=== PATIENT | female | born 1990 | race Caucasian/White ===

== ENCOUNTER 2025-02-04 11:54 | Outpatient (CLI) | payer BC, SELFPAY ==
--- OUTSIDE RECORDS SUMMARY | 2025-02-08 09:45 | XMS_ITS | Encounter Summary ---
Author Organization [facility] Address [address] [place] [address] Care Team Providers Care Cylinder Block Mechanic Name Role Phone David Emery Primary Care Provider [phone] Svetlana Box MD Primary Care Provider [phone] Yuridia Sofia APRN Unavailable Emma Warner MD Unavailable [phone] Katie Clayton NP Unavailable [phone] Shirin Magallanes NP Unavailable Unavailable Shahid Green MD Unavailable [phone] Delgado Valdez MD Unavailable [phone] Shanna Bronson MD Primary Care Provider Unavailabl e Reason for Visit * Reason Onset Date Comments Results 10/07/2018 Encounter Details Date Type Department Care Team (Late st Contact Info) Description 10/07/2018 Telephone [facility] - Obstetrics & Gynecology, [place] [address] [place] [address] Emma Warner MD [address] [place] [address] Results Social History Tobacco Use Types Packs/Day Years Used Date Smoking Tobacco: Never Smokeless Tobacco: Never Alcohol Use Standard Drinks/Week Comments No 0 (1 standard drink = 0.6 oz pur e alcohol) Comments Yes Sex and Gender Information Value Date Recorded Sex Assigned at Female 05/17/2020 11:05 AM EST Legal Sex Female 7:20 PM EST Gender Identity Female 05/17/2020 11:05 AM EST Sexual Orientation Straight 05/17/2020 11 :05 AM EST documented as of this encounter Miscellaneous Notes * Telephone Encounter - Emma Warner MD - 10/07/2018 4:02 PM EDT Signed * Telephone Encounter - Leonora Prince RMA - 10/07/2018 3:52 PM EDT Pt notified of results. Order pended Sign if okay documented in this encounter Plan of Treatment Not on file documented as of this encounter Visit Diagnoses Not on filedocumented in this encounter Additional Health Concerns Assessment Noted Time PHQ-9 Depression Total Score: 1 05/08/20 17 10:41 AM EST documented as of this encounter Care Teams Cylinder Block Mechanic Relationship Specialty Start Date End Date David Emery PA [address] [place] [address] [place] [address] PCP - General Physician Route Driver Salesperson 03/02/14 12/21/18 Svetlana Box MD [address] [place] [address] [place] [address] PCP - General Family Medicine 12/22/18 08/17/24 Shanna Bronson MD [address] [place] [address] PCP - General Family Medicine 08/18/24 Yuridia Sofia, SENIOR ENVIRONMENTAL ENGINEER [address] [facility] [address] [place], [place] [id number] Nurse Practitioner, Family 06/24/20 Emma Warner MD [address] [facility] [address] [place], [place] [address] Obstetrics & Gynecology 07/04/20 Katie Clayton NP [address] [facility] [address] [place], [place] [address] Nurse Practitioner Family Medicine 12/21/20 Shirin Magallanes NP [address] [facility] [place] [address] Nurse Practitioner Nurse Practitioner 04/20/21 Shahid Green MD 1954 [facility] [address] [place], [place] [address] Otolaryngology 10/31/21 Delgado Valdez MD [address] [place] [address] Orthopedic Surgery 05/20/22 documented as of this encounter
--- OUTSIDE RECORDS SUMMARY | 2025-02-08 09:45 | XMS_ITS | Encounter Summary ---
Author Organization [facility] Address [address] [place] [address] Care Team Providers Care Viticulture Teacher Name Role Phone Svetlana Box MD Primary Care Provider [phone] Yuridia Sofia APRN Unavailable [phone] Emma Warner MD Unavailable [phone] Katie Clayton NP Unavailable [phone] Shirin Magallanes NP Unavailable Unavailable Shahid Green MD Unavailable [phone] Delgado Valdez MD Unavailable [phone] Shanna Bronson MD Primary Care Provider Unavailabl e Reason for Visit * Reason Comments Med Change Request Encounter Details Date Type Department Care Team (Late st Contact Info) Description 10/22/2021 Refill [facility] - Primary Care, [place] [address] [place] [address] Svetlana Box MD [address] [place] [address] [place] [address] Med Change Request Social History Tobacco Use Types Packs/Day Years Used Date Smoking Tobacco: Never Smokeless Tobacco: Never Alcohol Use Standard Drinks/Week Comments Not Currently 0 (1 standard drink = 0.6 oz pur e alcohol) Rare PHQ-2 Answer Date Recorded PHQ-9 Auto Total 0 09/25/2021 [place] Depression Scale Answer Date Recorded [place] Depression Scale Total 1 08/28/2020 The thought of harming myself has occurred to me . Never 08/28/2020 Comments No Sex and Gender Information Value Date Recorded Sex Assigned at Female 05/17/2020 11:05 AM EST Legal Sex Female 7:20 PM EST Gender Identity Female 05/17/2020 11:05 AM EST Sexual Orientation Straight 05/17/2020 11 :05 AM EST COVID-19 Exposure Response Date Recorded In the last 10 days, have yo u been in contact with someone who was confirmed or suspected to have Coronavirus/COVID-19? No / Unsure 10/03/2021 1:16 PM EDT documented as of this encounter Functional Status * Are you blind or do you have difficulty seeing, even when wearing glasses? Answer Date of Assessment Author No 08/27/2020 10:23 AM Matthew Cartagena RN * Do you have serious difficulty walking or climbing stairs? Answer Date of Assessment Author No 08/27/2020 10:23 AM Matthew Cartagena RN * Do you have difficulty dressing or bathing? Answer Date of Assessment Author No 08/27/2020 10:23 AM Matthew Cartagena RN * Because of a physical, mental, or emotional condition, do you have difficulty doing errands alone such as a visiting a doctor's office or shopping? Answer Date of Assessment Author No 08/27/2020 10:23 AM Matthew Cartagena RN documented as of this encounter Mental Status * Because of a physical, mental, or emotional condition, do you have serious difficulty concentrating, remembering, or making decisions? Answer Entry Date Author No 08/27/2020 10:23 AM Matthew Cartagena RN documented in this encounter Plan of Treatment Not on file documented as of this encounter Visit Diagnoses Not on filedocumented in this encounter Additional Health Concerns Assessment Noted Time PHQ-9 Depression Total Score: 1 09/26/19 22 9:09 AM EDT documented as of this encounter Care Teams Viticulture Teacher Relationship Specialty Start Date End Date Svetlana Box MD [address] [place] [address] PCP - General Family Medicine 12/22/18 08/17/24 Shanna Bronson MD [address] [place] [address] PCP - General Family Medicine 08/18/24 Yuridia Sofia, AUTOMATION QTP TESTER [address] [facility] [place] [address] Nurse Practitioner, [facility] 06/24/20 Emma Warner MD [address] [facility] [place] [address] Obstetrics & Gynecology 07/04/20 Katie Clayton NP [address] [facility] [place] [address] Nurse Practitioner Family Medicine 12/21/20 Shirin Magallanes NP [address] [facility] [place] [address] Nurse Practitioner Nurse Practitioner 04/20/21 Shahid Green MD 1954 [facility] [address] [place] [address] Otolaryngology 10/31/21 Delgado Valdez MD [address] [place] [address] Orthopedic Surgery 05/20/22 documented as of this encounter
--- OUTSIDE RECORDS SUMMARY | 2025-02-08 09:45 | XMS_ITS | Encounter Summary ---
Author Organization [facility] Address [address] [place] [address] Care Team Providers Care Advertisement Compositor Name Role Phone Svetlana Box MD Primary Care Provider [phone] Yuridia Sofia APRN Unavailable [phone] Emma Warner MD Unavailable [phone] Katie Clayton NP Unavailable [phone] Shirin Magallanes NP Unavailable Unavailable Shahid Green MD Unavailable [phone] Delgado Valdez MD Unavailable [phone] Shanna Bronson MD Primary Care Provider Unavailabl e Reason for Visit * Reason Comments Medications Refill Encounter Details Date Type Department Care Team (Late st Contact Info) Description 09/13/2021 Refill [facility] Physicians - Obstetrics & Gynecology, [place] [address] [place] [address] Emma Warner MD [address] [place] [address] Medications Refill Social History Tobacco Use Types Packs/Day Years Used Date Smoking Tobacco: Never Smokeless Tobacco: Never Alcohol Use Standard Drinks/Week Comments Not Currently 0 (1 standard drink = 0.6 oz pur e alcohol) Rare PHQ-2 Answer Date Recorded PHQ-9 Auto Total 0 10/23/2019 [place] Depression Scale Answer Date Recorded [place] Depression Scale Total 1 08/28/2020 The thought of harming myself has occurred to me . Never 08/28/2020 Comments No Sex and Gender Information Value Date Recorded Sex Assigned at Female 05/17/2020 11:05 AM EST Legal Sex Female 7:20 PM EST Gender Identity Female 05/17/2020 11:05 AM EST Sexual Orientation Straight 05/17/2020 11 :05 AM EST documented as of this encounter Functional Status [...] Matthew Cartagena RN documented in this encounter Miscellaneous Notes * Telephone Encounter - Brynn Rose - 09/13/2021 8:46 AM EDT Lvm for pt to return call 09/13/2021 * Telephone Encounter - Michael Mckeon LPN - 09/13/2021 8:34 AM EDT Last Annual/ visit: 10/03/2020 Apt scheduled: none Pt due for annual appt documented in this encounter Plan of Treatment Not on file documented as of this encounter Visit Diagnoses Not on filedocumented in this encounter Additional Health Concerns Assessment Noted Time PHQ-9 Depression Total Score: 1 10/23/19 20 11:07 AM EDT documented as of this encounter Care Teams Advertisement Compositor Relationship Specialty Start Date End Date Svetlana Box MD [address] [facility] [place] [address] PCP - General Family Medicine 12/22/18 08/17/24 Shanna Bronson MD [address] [place] [address] PCP - General Family Medicine 08/18/24 Yuridia Sofia, APPLIANCE MECHANIC [address] [facility] [place] [address] Nurse Practitioner, Family 06/24/20 Emma Warner MD [address] [place] [address] [place] [address] Obstetrics & Gynecology 07/04/20 Katie Clayton NP [address] [place] [address] [place] [address] Nurse Practitioner Family Medicine 12/21/20 Shirin Magallanes NP [address] [place] [address] [place] [id number] Nurse Practitioner Nurse Practitioner 04/20/21 Shahid Green MD [address] [facility]. [address] [place] [address] Otolaryngology 10/31/21 Delgado Valdez MD [address] [place] [address] Orthopedic Surgery 05/20/22 documented as of this encounter
--- OUTSIDE RECORDS SUMMARY | 2025-02-08 09:45 | XMS_ITS | Encounter Summary ---
Author Organization [facility] Address [address] [place] [address] Care Team Providers Care Plating Engineer Name Role Phone Svetlana Box MD Primary Care Provider [phone] Yuridia Sofia APRN Unavailable [phone] Emma Warner MD Unavailable [phone] Katie Clayton NP Unavailable [phone] Shirin Magallanes NP Unavailable Unavailable Shahid Green MD Unavailable [phone] Delgado Valdez MD Unavailable [phone] Shanna Bronson MD Primary Care Provider Unavailabl e Reason for Visit * Reason Comments Medications Refill Encounter Details Date Type Department Care Team (Late st Contact Info) Description 03/21/2021 Refill [facility] - Obstetrics & Gynecology, [place] [address] [place] [address] Emma Warner MD [address] [place] [address] Medications Refill Social History Tobacco Use Types Packs/Day Years Used Date Smoking Tobacco: Never Smokeless Tobacco: Never Alcohol Use Standard Drinks/Week Comments Not Currently 0 (1 standard drink = 0.6 oz pur e alcohol) Rare PHQ-2 Answer Date Recorded PHQ-9 Auto Total 0 10/23/2019 [place] Depression Scale Answer Date Recorded [place] Depression Scale Total 1 08/28/2020 The thought [...] documented as of this encounter Care Teams Plating Engineer Relationship Specialty Start Date End Date Svetlana Box MD [address] [facility] [place] [address] PCP - General Family Medicine 12/22/18 08/17/24 Shanna Bronson MD [address] [place] [address] PCP - General Family Medicine 08/18/24 Yuridia Sofia APRN [address] [place] [address] [place], [place] [address] Nurse Practitioner, [facility] 06/24/20 Emma Warner MD [address] [place] [address] [place] [address] Obstetrics & Gynecology 07/04/20 Katie Clayton NP [address] [place] [address] [place], [place] [address] Nurse Practitioner Family Medicine 12/21/20 Shirin Magallanes NP [address] [place] [address] [place] [address] Nurse Practitioner Nurse Practitioner 04/20/21 Shahid Green MD [address] [place] [address] [address] [place] [address] Otolaryngology 10/31/21 Delgado Valdez MD [address] [place] [address] Orthopedic Surgery 05/20/22 documented as of this encounter
--- OUTSIDE RECORDS SUMMARY | 2025-02-08 09:45 | XMS_ITS | Encounter Summary ---
Author Organization [facility] Address [address] [place] [address] Care Team Providers Care Hides Inspector Name Role Phone Svetlana Box MD Primary Care Provider [phone] Yuridia Sofia APRN Unavailable [phone] Emma Warner MD Unavailable [phone] Katie Clayton NP Unavailable [phone] Shirin Magallanes NP Unavailable Unavailable Shahid Green MD Unavailable [phone] Delgado Valdez MD Unavailable [phone] Shanna Bronson MD Primary Care Provider Unavailabl e Encounter Details Date Type Department Care Team (Late st Contact Info) Description 04/24/2022 E-Visit [facility] Information Desk [address] [place] [address] Mychart, Generic Provider Social History Tobacco Use Types Packs/Day Years Used Date Smoking Tobacco: Never Smokeless Tobacco: Never Alcohol Use Standard Drinks/Week Comments Not Currently 0 (1 standard drink = 0.6 oz pur e alcohol) Rare PHQ-2 Answer Date Recorded PHQ-9 Auto Total 0 09/25/2021 [place] Depression Scale Answer Date Recorded [place] Depression Scale Total 1 08/28/2020 The thought [...] documented as of this encounter Care Teams Hides Inspector Relationship Specialty Start Date End Date Svetlana Box MD [address] [facility] [place] [address] PCP - General Family Medicine 12/22/18 08/17/24 Shanna Bronson MD [address] [place] [address] PCP - General Family Medicine 08/18/24 Yuridia Sofia APRN 1954 [facility] [address] [place], [place] [address] Nurse Practitioner, Family 06/24/20 Emma Warner MD 1954 [facility] [address] [place], [place] [id number] Obstetrics & Gynecology 07/04/20 Katie Clayton NP 1954 [facility] [address] [place], [place] [address] Nurse Practitioner Family Medicine 12/21/20 Shirin Magallanes NP [address] [place] [address] Nurse Practitioner Nurse Practitioner 04/20/21 Shahid Green MD 1954 [facility] [address] [place] [address] Otolaryngology 10/31/21 Delgado Valdez MD [address] [place] [address] Orthopedic Surgery 05/20/22 documented as of this encounter
--- OUTSIDE RECORDS SUMMARY | 2025-02-08 09:46 | XMS_ITS | Encounter Summary ---
Author Organization [facility] Address [address] [place] [address] Care Team Providers Care Car Storer Name Role Phone Yuridia Sofia CLIENT ASSOCIATE Unavailable [phone] Emma Warner MD Unavailable [phone] Katie Clayton NP Unavailable [phone] Shirin Magallanes NP Unavailable Unavailable Shahid Green MD Unavailable [phone] Delgado Valdez MD Unavailable [phone] Shanna Bronson MD Primary Care Provider Unavailabl e Reason for Visit * Reason Onset Date Comments Other 10/22/2024 Pt requests US Encounter Details Date Type Department Care Team (Late st Contact Info) Description 10/22/2024 Telephone [facility] Physicians - Obstetrics & Gynecology, [place] [address] [place] [address] Yuridia Sofia, CLIENT ASSOCIATE [address] [place] [address] Other (Pt requests US ) Social History Tobacco Use Types Packs/Day Years Used Date Smoking Tobacco: Never Smokeless Tobacco: Never Alcohol Use Standard Drinks/Week Comments Not Currently 0 (1 standard drink = 0.6 oz pur e alcohol) Rare PHQ-2 Answer Date Recorded PHQ-9 Auto Total 10 08/18/2024 [place] Depression Scale Answer Date Recorded [place] Depression Scale Total 1 08/28/2020 The thought [...] encounter Miscellaneous Notes * Telephone Encounter - Romi Larios - 10/23/2024 12:29 PM EDT LVM to get sched for US * Telephone Encounter - Romi Larios - 10/22/2024 12:34 PM EDT Pt wants an approval for an US because she is still having pain in her abdomen right ovary Let me know if I can sched documented in this encounter Plan of Treatment Not on file documented as of this encounter Visit Diagnoses Not on filedocumented in this encounter Additional Health Concerns Assessment Noted Time PHQ-9 Depression Total Score: 1 04/01/20 11:34 AM EST documented as of this encounter Care Teams Car Storer Relationship Specialty Start Date End Date Shanna Bronson MD [address] [place] [address] PCP - General Family Medicine 08/18/24 Yuridia Sofia, CLIENT ASSOCIATE 1954 [facility] [place] [address] Nurse Practitioner, [facility] 06/24/20 Emma Warner MD 1954 [facility] [place] [address] Obstetrics & Gynecology 07/04/20 Katie Clayton NP 1954 [facility] [place] [address] Nurse Practitioner Family Medicine 12/21/20 Shirin Magallanes NP [address] [place] [address] [place] [address] Nurse Practitioner Nurse Practitioner 04/20/21 Shahid Green MD 1954 [facility] [place] [address] Otolaryngology 10/31/21 Delgado Valdez MD [address] [place] [address] Orthopedic Surgery 05/20/22 documented as of this encounter
--- OUTSIDE RECORDS SUMMARY | 2025-02-08 09:46 | XMS_ITS | Clinical Summary ---
Author Organization [facility] Address [address] [place] [address] Care Team Providers Care Roofer Vinyl Coating Name Role Phone Yuridia Sofia APRN Unavailable [phone] Emma Warner MD Unavailable [phone] Katie Clayton NP Unavailable [phone] Shirin Magallanes NP Unavailable Unavailable Shahid Green MD Unavailable [phone] Delgado Valdez MD Unavailable [phone] Shanna Bronson MD Primary Care Provider Unavailabl e Allergies Active Allergy Reactions Criticality Noted Date Comments Amoxicillin Hives 11/22/2011 Latex Anaphylaxis,Shortness Of Breath High 09/10 Penicillins Hives 03/03/2014 Medications EPINEPHrine (EPIPEN) 0.3 mg/0.3 mL Auto-Injector epi-pen INJECT SYRINGE DIRECTED FOR ALLERGIC REACTION 2 9 Active multivitamin (THERAGRAN) Tablet Take 1 Tablet by mouth daily. Active melatonin 1 mg Tablet, Chewable Take by mouth. Activ e loratadine (Claritin) 10 mg tablet Take 10 mg by mouth daily. Active mupirocin (BACTROBAN) 2 % ointment Apply to affected area twice a day until clear. 22 g 4 Active fexofenadine (Ana Allergy) 180 mg tablet Take 180 mg by mouth daily. 4 Active albuterol (VENTOLIN/PROAI R/PROVENTIL HFA) 90 mcg/actuation HFA Aerosol Inhaler Take 2 Puffs by inhalation every 4 hours as needed for Wheezing. 1 Each 11 4 Active aspirin 81 mg Tablet, Delayed Release (E.C.) Take 81 mg by mouth daily. Active Levocetirizine (Xyzal) 5 mg Tablet 5 Active clindamycin (CLEOCIN) 300 mg capsuleIndicati ons:MRSA infection,Recur rent cellulitis Take 1 Capsule (300 mg) by mouth every 8 hours. 30 Capsule 1 5 Active Active Problems Problem Noted Date Diagnosed Date Vitamin D deficiency 09/26/2021 Assessment & Plan (08/30/2024 6:37 PM EDT): Orders: VITAMIN D 25 HYDROXY TOTAL; Future Lesion of skin of cheek 03/20/2016 Latex allergy 03/19/2016 Iron deficiency anemia, unsp ecified iron deficiency anemia type 03/19/2016 Assessment & Plan (08/30/2024 6:37 PM EDT): Orders: CBC WITH DIFFERENTIAL; Future IRON STUDIES (FE + TIBC + SAT); Future Resolved Problems Problem Noted Date Diagnosed Date Resolved Date 40 weeks gestation of 08/27/2020 09/25/2021 11/30/2018 09/25/2021 Pyelonephritis-bilateral 04/17/2016 Localized superficial swelling, mass, or lump 11/28/19 12 03/03/2014 Immunizations Immunization Administration Dates Next Due DTaP 01/29/1996,11/25/1991,04/03/1991 ,1990,1990 Hepatitis B 02/09/2002,11/07/2001,06/11/2001 HiB 08/29/1991,04/03/1991,1990 ,1990 IPV 01/29/1996,11/25/1991,1990 ,1990 Influenza (whole) 03/18/2016,03/27/2015,02/09/20 15 MMR 06/09/2001,01/29/1996,08/29/1991 Tdap 07/04/2020,10/09/2018,12/19/2005 Family History Medical History Relation Name Comments High Cholesterol Father Alcohol Abuse Maternal Grandfather Prostate Cancer Maternal Grandfather Osteoarthritis Maternal Grandmother Anemia Mother High Blood Pressure Mother High Cholesterol Mother Thyroid Disease Mother Osteoarthritis Paternal Grandmother Osteoporosis Paternal Grandmother Migraines Sister Relation Name Status Comments Father Maternal Grandfather Maternal Grandmother Mother Paternal Grandmother Sister Social History Tobacco Use Types Packs/Day Years Used Date Smoking Tobacco: Never Smokeless Tobacco: Never Tobacco Cessation:Counseling Given: Not Answered Alcohol Use Standard Drinks/Week Comments Not Currently 0 (1 standard drink = 0.6 oz pur e alcohol) Rare PHQ-2 Answer Date Recorded PHQ-9 Auto Total 10 08/18/2024 [place] Depression Scale Answer Date Recorded [place] Depression Scale Total 1 08/28/2020 The thought of harming myself has occurred to me . Never 08/28/2020 Comments No Sex and Gender Information Value Date Recorded Sex Assigned at Female 05/17/2020 11:05 AM EST Legal Sex Female 7:20 PM EST Gender Identity Female 05/17/2020 11:05 AM EST Sexual Orientation Straight 05/17/2020 11 :05 AM EST Last Filed Vital Signs Vital Sign Reading Time Taken Comments Blood Pressure 102/64 08/18/2024 3:58 PM EDT Pulse 95 08/18/2024 4:03 PM EDT Temperature 36.2 C (97.2 F) 08/18/2024 3:58 PM EDT Respiratory Rate 18 12/21/2020 1:34 PM EDT Oxygen Saturation 99% 08/18/2024 3:58 PM EDT Inhaled Oxygen Concentration - - Weight 61.4 kg (135 lb 6.4 oz) 08/18/2024 3:58 P M EDT Height 157.5 cm (5' 2 ) 08/18/2024 3:58 PM EDT Body Mass Index 24.76 08/18/2024 3:58 PM EDT Plan of Treatment Health Maintenance Due Date Last Done Comments HPV Vaccine (1 - 3-dose SCDM series) 2017 COVID-19 Vaccine (2023-2 5 season) 2025 Influenza Vaccination (#1) 01/11/202503/18, 03/27/2015, 02/08/2015 Cervical Cancer Screening 08/08/20272024, 11/30/2021, 02/22/2020, Additional history exists Tetanus Vaccination (Every 1 0 Years) 07/04/2030 07/04/2020, 10/09/2018, 12/19/2005, Additional history exists Influenza Vaccination (Yearly) Discontinued 1 07/09/2016 (Patient/Parent/Guardian Counseled and Declines), 03/19/2016, 03/18/2016, Additional history exists Depression Screening Completed 08/18/2024, 05/21/2023, 04/01/2023, Additional history exists Lipid Screening Completed 08/31/2024, 09/25/2021 Procedures Procedure Name Priority Date/Time Associated Diagnosis Comments LIPID PROFILE Routine 08/31/2024 11:41 AM EDT Routine general medical examination at a health care facility PAP HPV DNA, JUNE Routine 08/07/2024 4:4 0 PM EDT Gynecologic exam normal from Last 3 Months or Most Recently Relevant to Health Maintenance Results * (ABNORMAL) LIPID PROFILE (08/31/2024 11:41 AM EDT) Cholesterol 179 125 - 199 mg/dL [facility] Comment: TOTAL CHOLESTEROL INTERPRETATION: Less than 200 mg/dL Desireable 200-239 mg/dL Borderline Greater or Equal to 240 mg/dL High LDL Calculated 113(H) 0 - 100 mg/dL [facility] Comment: LDL CHOLESTEROL INTERPRETATION: Less than 100 mg/dL Optimal 100-129 mg/dL Near optimal/above optimal 130-159 mg/dL Borderline High 160-189 mg/dL High Greater or Equal to 190 mg/dL Very High HDL 54 40 - 180 mg/dL [facility] Comment: HDL CHOLESTEROL INTERPRETATION: Less than 40 mg/dL Low Greater than 60 mg/dL Desirable Triglycerides 58 0 - 149 mg/dL [facility] Comment: TOTAL TRIGLYCERIDE INTERPRETATION: Less than 150 mg/dL Normal 150-199 mg/dL Borderline HIgh 200-499 mg/dL High Greater or Equal to 500 mg/dL Very High NONHDL Calculated 125 0 - 129 mg/dL [facility] Comment: NON-HDL INTERPRETATION: Less than 130 mg/dL Desirable 130-159 mg/dL Above Desirable 160-189 mg/dL Borderline High 190-219 mg/dL High Greater than or equal to 220 mg/dL Very High Serum 08/31/2024 11:4 1 AM EDT 08/31/2024 6:07 PM EDT Narrative [facility] - 08/31/2024 6:53 PM EDT Has the patient fasted?->Yes us Shanna Bronson MD CHEMISTRY ORDERABLES Final Resul t [facility] [address] [id number], [facility] * PAP HPV DNA, JUNE (08/07/2024 4:40 PM EDT) Diagnosis Comment [facility] Comment:NEGATIVE FOR INTRAEP ITHELIAL LESION OR MALIGNANCY. Adequacy Comment [facility] Comment: Satisfactory for evaluation. Endocervical and/or squamous metaplastic cells (endocervical component) are present. Performed Comment [facility] Comment:Marisol Crurie, Cytote chnologist (ASCP) Notes Comment [facility] Comment: The Pap smear is a screening test designed to aid in the detection of premalignant and malignant conditions of the uterine cervix. It is not a diagnostic procedure and should not be used as the sole means of detecting cervical cancer. Both false-positive and false-negative reports do occur. HPV 16 Hilaria Negative Negative [facility] HPV 18, Hilaria Negative Negative [facility] Comment: This nucleic acid amplification test detects fourteen high-risk HPV types: HPV16, HPV18 and twelve other high-risk types (31,33,35,39,45,51,52,56,58,59,66,68) without differentiation. Performed at: [address] [id number] Rn Testing: Madhavi Clement MD, Phone: [phone] Performed at: [address] [id number] Rn Testing: Madhavi Clement MD, Phone: [phone] HPV Other Types, Hilaria Negative Negative [facility] Pap Vial 08/07/2024 4:40 PM EDT 08/11/2024 1:07 PM EDT Yuridia Sofia B OPERATOR PATHOLOGY/CYTOLOGY ORDERABL ES Final Result [facility] [address] [place] [address], [facility] from Last 3 Months or Most Recently Relevant to Health Maintenance Insurance [employer] Advance Directives For more information, please contact: [phone] * Full Code (Latest Code Status on File) Date Activated Date Inactivated Comments 08/27/2020 8:24 PM No automated c hest compression devices for VAD Patients * Full Code Date Activated Date Inactivated Comments 08/27/2020 8:56 AM 08/27/2020 8:24 PM No automated chest compression devices for VAD Patients * Full Code Date Activated Date Inactivated Comments 12/04/2018 5:00 AM 08/27/2020 8:05 AM No automated chest compression devices for VAD Patients * Full Code Date Activated Date Inactivated Comments 12/03/2018 8:15 PM 12/04/2018 5:00 AM No automated chest compression devices for VAD Patients * Full Code Date Activated Date Inactivated Comments 12/01/2018 10:37 AM 12/03/2018 8:14 PM No automate d chest compression devices for VAD Patients Care Teams Roofer Vinyl Coating Relationship Specialty Start Date End Date Shanna Bronson MD [address] [place] [address] PCP - General Family Medicine 08/18/24 Yuridia Sofia, B OPERATOR [address] [place] [address] Nurse Practitioner, Family 06/24/20 Emma Warner MD [address] [place] [address] [place] [address] Obstetrics & Gynecology 07/04/20 Katie Clyaton NP [address] [place] [address] [place] [address] Nurse Practitioner Family Medicine 12/21/20 Shirin Magallanes NP [address] [place] [address] [place] [address] Nurse Practitioner Nurse Practitioner 04/20/21 Shahid Green MD 1954 [facility] [address] [place] [address] Otolaryngology 10/31/21 Delgado Valdez MD [address] [place] [address] Orthopedic Surgery 05/20/22
--- OUTSIDE RECORDS SUMMARY | 2025-02-08 09:46 | XMS_ITS | Encounter Summary ---
Author Organization [facility] Address [address] [place] [address] Care Team Providers Care Factory Supervisor Name Role Phone David Emery Primary Care Provider [phone] Svetlana Box MD Primary Care Provider [phone] Yuridia Sofia APRN Unavailable Emma Warner MD Unavailable [phone] Katie Clayton NP Unavailable [phone] Shirin Magallanes NP Unavailable Unavailable Shahid Green MD Unavailable [phone] Delgado Valdez MD Unavailable [phone] Shanna Bronson MD Primary Care Provider Unavailabl e Reason for Visit * Reason Comments Medications Refill Encounter Details Date Type Department Care Team (Late st Contact Info) Description 01/31/2018 Refill [facility] - Obstetrics & Gynecology, [place] [address] [place] [address] Yuridia Sofia, LAYTON [address] [place] [address] Medications Refill Social History Tobacco Use Types Packs/Day Years Used Date Smoking Tobacco: Never Smokeless Tobacco: Never Alcohol Use Standard Drinks/Week Comments No 0 (1 standard drink = 0.6 oz pur e alcohol) Comments No Sex and Gender Information Value Date Recorded Sex Assigned at Female 05/17/2020 11:05 AM EST Legal Sex Female 7:20 PM EST Gender Identity Female 05/17/2020 11:05 AM EST Sexual Orientation Straight 05/17/2020 11 :05 AM EST documented as of this encounter Miscellaneous Notes * Telephone Encounter - Elizabeth Tijerina CCMA - 01/31/2018 3:22 PM EDT Called pt and she already picked up her Zofran rx a couple days ago. Must have got this refill in error. documented in this encounter Plan of Treatment Not on file documented as of this encounter Visit Diagnoses Not on filedocumented in this encounter Additional Health Concerns Assessment Noted Time PHQ-9 Depression Total Score: 1 05/08/20 17 10:41 AM EST documented as of this encounter Care Teams Factory Supervisor Relationship Specialty Start Date End Date David Emery PA [address] [facility] [place] [address] PCP - General Physician Renewable Energy Project Manager 03/02/14 12/21/18 Svetlana Box MD [address] [facility] [place] [address] PCP - General Family Medicine 12/22/18 08/17/24 Shanna Bronson MD [address] [place] [address] PCP - General Family Medicine 08/18/24 Yuridia Sofia APRN [address] [facility] [place] [address] Nurse Practitioner, Family 06/24/20 Emma Warner MD [address] [facility] [place] [address] Obstetrics & Gynecology 07/04/20 Katie Clayton NP [address] [facility] [address] [place], [place] [id number] Nurse Practitioner Family Medicine 12/21/20 Shirin Magallanes NP [address] [facility] [place] [address] Nurse Practitioner Nurse Practitioner 04/20/21 Shahid Green MD 1954 [facility]. [facility] [address] [place] [address] Otolaryngology 10/31/21 Delgado Valdez MD [address] [place] [address] Orthopedic Surgery 05/20/22 documented as of this encounter
--- OUTSIDE RECORDS SUMMARY | 2025-02-08 09:46 | XMS_ITS | Encounter Summary ---
Author Organization [facility] Address [address] [place] [address] Care Team Providers Care Solar Sales Representative Name Role Phone Svetlana Box MD Primary Care Provider [phone] Yuridia Sofia APRN Unavailable [phone] Emma Warner MD Unavailable [phone] Katie Clayton NP Unavailable [phone] Shirin Magallanes NP Unavailable Unavailable Shahid Green MD Unavailable [phone] Delgado Valdez MD Unavailable [phone] Shanna Bronson MD Primary Care Provider Unavailabl e Encounter Details Date Type Department Care Team (Late st Contact Info) Description 10/23/2019 E-Visit [facility] Physicians - Primary Care, Dotty Chen [address] [place] [address] [place] [address] Svetlana Box MD [address] [facility] [place] [address] E-Visit Submission: OTHER Social History Tobacco Use Types Packs/Day Years Used Date Smoking Tobacco: Never Smokeless Tobacco: Never Alcohol Use Standard Drinks/Week Comments No 0 (1 standard drink = 0.6 oz pur e alcohol) PHQ-2 Answer Date Recorded PHQ-9 Auto Total 0 10/23/2019 Comments No Sex and Gender Information Value Date Recorded Sex Assigned at Female 05/17/2020 11:05 AM EST Legal Sex Female 7:20 PM EST Gender Identity Female 05/17/2020 11:05 AM EST Sexual Orientation Straight 05/17/2020 11 :05 AM EST COVID-19 Exposure Response Date Recorded In the last month, have you been in contact with someone who was confirmed or suspected to have Coronavirus / COVID-19? No / Unsure 10/23/2019 8:41 AM EDT documented as of this encounter Functional Status * Are you blind or do you have difficulty seeing, even when wearing glasses? Answer Date of Assessment Author No 11/30/2018 9:06 PM EDT Nicole Michael RN * Do you have serious difficulty walking or climbing stairs? Answer Date of Assessment Author No 11/30/2018 9:06 PM EDT Nicole Michael RN * Do you have difficulty dressing or bathing? Answer Date of Assessment Author No 11/30/2018 9:06 PM EDT Nicole Michael RN * Because of a physical, mental, or emotional condition, do you have difficulty doing errands alone such as a visiting a doctor's office or shopping? Answer Date of Assessment Author No 11/30/2018 9:06 PM EDT Nicole Michael RN documented as of this encounter Mental Status * Because of a physical, mental, or emotional condition, do you have serious difficulty concentrating, remembering, or making decisions? Answer Entry Date Author No 11/30/2018 9:06 PM EDT Nicole Michael RN documented in this encounter Plan of Treatment Not on file documented as of this encounter Visit Diagnoses Not on filedocumented in this encounter Additional Health Concerns Assessment Noted Time PHQ-9 Depression Total Score: 1 10/23/19 20 11:07 AM EDT documented as of this encounter Care Teams Solar Sales Representative Relationship Specialty Start Date End Date Svetlana Box MD [address] [facility] [place] [address] PCP - General Family Medicine 12/22/18 08/17/24 Shanna Bronson MD [address] [place] [address] PCP - General Family Medicine 08/18/24 Yuridia Sofia APRN [address] [facility] [address] [place], [place] [address] Nurse Practitioner, [facility] 06/24/20 Emma Warner MD [address] [facility] [place] [address] Obstetrics & Gynecology 07/04/20 Katie Clayton NP [address] [facility] [address] [place], [place] [id number] Nurse Practitioner Family Medicine 12/21/20 Shirin Magallanes NP [address] [place] [address] Nurse Practitioner Nurse Practitioner 04/20/21 Shahid Green MD 1954 [facility] [place] [address] Otolaryngology 10/31/21 Delgado Valdez MD [address] [place] [address] Orthopedic Surgery 05/20/22 documented as of this encounter
--- OUTSIDE RECORDS SUMMARY | 2025-02-08 09:46 | XMS_ITS | Encounter Summary ---
Author Organization [facility] Address [address] [place] [address] Care Team Providers Care Nurse Discharge Name Role Phone Svetlnaa Box MD Primary Care Provider [phone] Yuridia Sofia APRN Unavailable [phone] Emma Warner MD Unavailable [phone] Katie Clayton NP Unavailable [phone] Shirin Magallanes NP Unavailable Unavailable Shahid Green MD Unavailable [phone] Delgado Valdez MD Unavailable [phone] Shanna Bronson MD Primary Care Provider Unavailabl e Encounter Details Date Type Department Care Team (Late st Contact Info) Description 10/19/2022 E-Visit [facility] Information Desk [address] [place] [address] Mychart, Generic Provider Social History Tobacco Use Types Packs/Day Years Used Date Smoking Tobacco: Never Smokeless Tobacco: Never Alcohol Use Standard Drinks/Week Comments Not Currently 0 (1 standard drink = 0.6 oz pur e alcohol) Rare PHQ-2 Answer Date Recorded PHQ-9 Auto Total 0 09/25/2021 [place] Depression Scale Answer Date Recorded [place] Depression Scale Total 1 08/28/2020 The thought [...] documented as of this encounter Care Teams Nurse Discharge Relationship Specialty Start Date End Date Svetlana Box MD [address] [place] [address] PCP - General Family Medicine 12/22/18 08/17/24 Shanna Bronson MD [address] [place] [address] PCP - General Family Medicine 08/18/24 Yuridia Sofia APRN 1954 [facility] [address] [place], [place] [address] Nurse Practitioner, Family 06/24/20 Emma Warner MD 1954 [facility] [address] [place], [place] [id number] Obstetrics & Gynecology 07/04/20 Katie Clayton NP [address] [facility] [address] [place], [place] [id number] Nurse Practitioner Family Medicine 12/21/20 Shirin Magallanes NP 1954 [facility] [place] [address] Nurse Practitioner Nurse Practitioner 04/20/21 Shahid Green MD 1954 [facility] [place] [facility] [address] [place] [address] Otolaryngology 10/31/21 Delgado Valdez MD [address] [place] [address] Orthopedic Surgery 05/20/22 documented as of this encounter
--- OUTSIDE RECORDS SUMMARY | 2025-02-08 09:46 | XMS_ITS | Encounter Summary ---
Author Organization [facility] Address [address] [place] [address] Care Team Providers Care Job Order Clerk Name Role Phone Svetlana Box MD Primary Care Provider [phone] Yuridia Sofia APRN Unavailable [phone] Emma Warner MD Unavailable [phone] Katie Clayton NP Unavailable [phone] Shirin Magallanes NP Unavailable Unavailable Shahid Green MD Unavailable [phone] Delgado Valdez MD Unavailable [phone] Shanna Bronson MD Primary Care Provider Unavailabl e Encounter Details Date Type Department Care Team (Late st Contact Info) Description 11/21/2022 E-Visit [facility] Information Desk [address] [place] [address] Mychart, Generic Provider Social History Tobacco Use Types Packs/Day Years Used Date Smoking Tobacco: Never Smokeless Tobacco: Never Alcohol Use Standard Drinks/Week Comments Not Currently 0 (1 standard drink = 0.6 oz pur e alcohol) Rare PHQ-2 Answer Date Recorded PHQ-9 Auto Total 0 09/25/2021 [place] Depression Scale Answer Date Recorded [place] Depression Scale Total 1 08/28/2020 The thought [...] suspected to have Coronavirus/COVID-19? No / Unsure 11/21/2022 2:20 PM EDT documented as of this encounter [...] documented as of this encounter Care Teams Job Order Clerk Relationship Specialty Start Date End Date Svetlana Box MD [address] [facility] [place] [address] PCP - General Family Medicine 12/22/18 08/17/24 Shanna Bronson MD [address] [place] [address] PCP - General Family Medicine 08/18/24 Yuridia Sofia APRN [address] [place] [address] [place] [address] Nurse Practitioner, [facility] 06/24/20 Emma Warner MD [address] [place] [address] [place] [address] Obstetrics & Gynecology 07/04/20 Katie Clayton NP [address] [place] [address] [place] [address] Nurse Practitioner Family Medicine 12/21/20 Shirin Magallanes NP [address] [place] [address] [place] [address] Nurse Practitioner Nurse Practitioner 04/20/21 Shahid Green MD [facility]. [facility] [address] [place] [address] Otolaryngology 10/31/21 Delgado Valdez MD [address] [place] [address] Orthopedic Surgery 05/20/22 documented as of this encounter
--- OUTSIDE RECORDS SUMMARY | 2025-02-08 09:46 | XMS_ITS | Encounter Summary ---
Author Organization [facility] (Formerly [facility])[3] Address [address] [place] [address] Care Team Providers Care Kiln Tester Name Role Phone Svetlana Box MD Primary Care Provider [phone] Yuridia Sofia APRN Unavailable [phone] Emma Warner MD Unavailable [phone] Katie Clayton NP Unavailable [phone] Shirin Magallanes NP Unavailable Unavailable Shahid Green MD Unavailable [phone] Delgado Valdez MD Unavailable [phone] Shanna Bronson MD Primary Care Provider Unavailabl e Reason for Visit * Reason Comments Medications Refill Encounter Details Date Type Department Care Team (Late st Contact Info) Description 09/21/2019 Refill [facility] ([facility]3] Physicians - Obstetrics & Gynecology, [place] [address] [place] [address] Yuridia Sofia, CHILD CARE GROUP LEADER [address] [place] [address] Medications Refill Social History Tobacco [...] Nicole Michael RN documented in this encounter Miscellaneous Notes * Telephone Encounter - Francie Farah - 09/23/2019 10:19 AM EDT Pt called back stating she did not request this refill. * Telephone Encounter - Elizabeth Tijerina CCMA - 09/23/2019 9:04 AM EDT LM for pt to call back to let us know if she requested this rx or not. * Telephone Encounter - Elizabeth Tijerina CCMA - 09/22/2019 4:20 PM EDT Last annual 06/12/2018. documented in this encounter Plan of Treatment Not on file documented as of this encounter Visit Diagnoses Not on filedocumented in this encounter Additional Health Concerns Assessment Noted Time PHQ-9 Depression Total Score: 1 05/08/20 17 10:41 AM EST documented as of this encounter Care Teams Kiln Tester Relationship Specialty Start Date End Date Svetlana Box MD [address] [facility] [place] [address] [place] [address] PCP - General Family Medicine 12/22/18 08/17/24 Shanna Bronson MD [address] [place] [address] PCP - General Family Medicine 08/18/24 Yuridia Sofia, CHILD CARE GROUP LEADER [address] [facility] [place] [address] Nurse Practitioner, Family 06/24/20 Emma Warner MD [address] [facility] [place] [place] [address] Obstetrics & Gynecology 07/04/20 Katie Clayton NP [address] [place] [address] [place] [address] Nurse Practitioner Family Medicine 12/21/20 Shirin Magallanes NP [address] [facility] [place] [address] Nurse Practitioner Nurse Practitioner 04/20/21 Shahid Green MD [address] [facility] [place] [address] Otolaryngology 10/31/21 Delgado Valdez MD [address] [place] [address] Orthopedic Surgery 05/20/22 documented as of this encounter
--- OUTSIDE RECORDS SUMMARY | 2025-02-08 09:46 | XMS_ITS | Encounter Summary ---
Author Organization [facility] Address [address] [place] [address] Care Team Providers Care It Security Analyst Name Role Phone Svetlana Box MD Primary Care Provider [phone] Yuridia Sofia APRN Unavailable [phone] Emma Warner MD Unavailable [phone] Katie Clayton NP Unavailable [phone] Shirin Magallanes NP Unavailable Unavailable Shahid rGeen MD Unavailable [phone] Delgado Valdez MD Unavailable [phone] Shanna Bronson MD Primary Care Provider Unavailabl e Encounter Details Date Type Department Care Team (Late st Contact Info) Description 10/23/2019 E-Visit [facility] Information Desk [address] [place] [address] [id number] Mychart, Generic Provider Social History Tobacco Use [...] documented as of this encounter Care Teams It Security Analyst Relationship Specialty Start Date End Date Svetlana Box MD [address] [place] [address] PCP - General Family Medicine 12/22/18 08/17/24 Shanna Bronson MD [address] [place] [address] PCP - General Family Medicine 08/18/24 Yuridia Sofia, NATURALIST [address] [facility] [address] [facility] [place] [id number] Nurse Practitioner, [facility] 06/24/20 Emma Warner MD [address] [facility] [address] [place], [place] [id number] Obstetrics & Gynecology 07/04/20 Katie Clayton NP [address] [facility] [address] [place], [place] [id number] Nurse Practitioner Family Medicine 12/21/20 Shirin Magallanes NP [address] [facility] [place] [address] Nurse Practitioner Nurse Practitioner 04/20/21 Shahid Green MD [address] [facility] [address] [place] [address] Otolaryngology 10/31/21 Delgado Valdez MD [address] [place] [address] Orthopedic Surgery 05/20/22 documented as of this encounter
== END 2025-02-04 23:59 ==
LOC: LAB.DROPOF 02-08 09:44
PROVIDERS: PCP Nurse Practitioner Family; Visit Provider Nurse Practitioner Family
DX: R31.9 Hematuria, unspecified (principal)
CPT/HCPCS: 87086; 87088; 87186